=== PATIENT | male | born 1955 | race Caucasian/White ===

== ENCOUNTER → 2020-09-05 | Outpatient (CLI) | payer MEDICARE | LOC: BHSO 13:03 | DX: F06.32 Mood disorder due to known physiological condition with major depressive-like episode (principal) ==

== ENCOUNTER 2021-09-11 13:30 | Outpatient (RCR) | payer MEDICARE | END 2021-09-24 | disposition home or self-care (01) | LOC: WSST | DX: G31.84 Mild cognitive impairment of uncertain or unknown etiology (principal); R46.89 Other symptoms and signs involving appearance and behavior ==

== ENCOUNTER 2021-10-30 12:45 | Outpatient (RCR) | payer MEDICARE | END 2021-10-31 | disposition home or self-care (01) | LOC: WSST | DX: R41.844 Frontal lobe and executive function deficit (principal); R41.89 Other symptoms and signs involving cognitive functions and awareness ==

== ENCOUNTER 2021-11-27 12:49 | Outpatient (RCR) | payer MEDICARE | END 2021-12-01 | disposition home or self-care (01) | LOC: WSST | DX: R41.844 Frontal lobe and executive function deficit (principal) ==

== ENCOUNTER 2021-12-25 12:45 | Outpatient (RCR) | payer MEDICARE | END 2021-12-29 | disposition home or self-care (01) | LOC: WSST | DX: R41.844 Frontal lobe and executive function deficit (principal) ==

== ENCOUNTER → 2022-01-29 | Outpatient (RCR) | payer MEDICARE | END | disposition home or self-care (01) | LOC: WSST | DX: G31.84 Mild cognitive impairment of uncertain or unknown etiology (principal); R46.89 Other symptoms and signs involving appearance and behavior ==

== ENCOUNTER 2022-02-26 12:45 | Outpatient (RCR) | payer MEDICARE | END 2022-02-28 | disposition home or self-care (01) | LOC: WSST | DX: R41.844 Frontal lobe and executive function deficit (principal); R46.89 Other symptoms and signs involving appearance and behavior; R41.89 Other symptoms and signs involving cognitive functions and awareness ==

== ENCOUNTER 2022-03-26 12:45 | Outpatient (RCR) | payer MEDICARE | END 2022-03-31 | disposition home or self-care (01) | LOC: WSST | DX: R41.844 Frontal lobe and executive function deficit (principal) ==